=== PATIENT | male | born 1945 | race Caucasian/White ===

== ENCOUNTER 2020-10-03 17:59 | Emergency (ER) | payer OTHER ==
[~2020-10-03] VITALS: Ht 175.3 cm; Wt 65.8 kg
--- NOTE | 2020-10-03 18:04 | NUR ---
CODE STROKE ACTIVATED BY DR. QUIGLEY.
--- NOTE | 2020-10-03 18:06 | NUR ---
TELEMED REQUEST PLACED VIA PC, ID [id number].
--- NOTE | 2020-10-03 18:12 | NUR ---
PT TO CT VIA [facility] WITH ACLS GUIDELINES IN PLACE.
[2020-10-03] MEDS ORDERED: IV NORMAL SALINE 250 ML IV ONE (18:16)
[2020-10-03] MEDS ORDERED: SWABABLE VALVE TRANSFER SET EA MC ONE (18:16)
[2020-10-03] MEDS ORDERED: IOHEXOL 350 100 ML INFUS..BTL ONE (18:16)
[2020-10-03 18:17] LABS: BASOPHILS # (AUTO) 0.1 K/uL (0.0-8.0); BASOPHILS % (AUTO) 0.7 % (0.0-2.0); EOSINOPHILS # (AUTO) 0.1 K/uL (0.0-0.7); EOSINOPHILS % (AUTO) 1.9 % (0.0-7.0); HEMATOCRIT 46.6 % (36.7-47.1); HEMOGLOBIN 15.4 g/dL (12.5-16.3); LYMPHOCYTES # (AUTO) 1.4 K/uL (20.0-40.0); LYMPHOCYTES % (AUTO) 17.7 % (20.5-51.5); MEAN CORPUSCULAR HEMOGLOBIN 30.5 uug (23.8-33.4); MEAN CORPUSCULAR HGB CONC 33 g/dL (32.5-36.3); MEAN CORPUSCULAR VOLUME 92.3 fL (73.0-96.2); MONOCYTES # (AUTO) 0.8 K/uL (2.0-10.0); MONOCYTES % (AUTO) 10.4 % (0.0-11.0); NEUTROPHILS # (AUTO) 5.5 K/uL (1.8-8.9); NEUTROPHILS % (AUTO) 69.3 % (38.5-71.5); PLATELET COUNT (AUTO) 184 K/uL (152-348); RED BLOOD CELL COUNT(AUTO) 5.05 MIL/uL (4.06-5.63); WHITE BLOOD COUNT (AUTO) 7.9 K/uL (3.6-10.2)
[2020-10-03 18:25] LABS: CREATININE 1.3 mg/dL (0.6-1.3)
[2020-10-03] MEDS ORDERED: LUBI24CA5 PO (18:28)
[2020-10-03] MEDS ORDERED: HYDR-3980 PO (18:28)
[2020-10-03] MEDS ORDERED: ALEN70TA80 PO (18:28)
[2020-10-03] MEDS ORDERED: ISOS30TA86 PO (18:28)
[2020-10-03] MEDS ORDERED: METH5TAB3 PO (18:28)
[2020-10-03 18:31] LABS: BILIRUBIN,DIRECT 0.1 mg/dL (0.0-0.2); BILIRUBIN,TOTAL 0.3 mg/dL (0.2-1.0); TOTAL PROTEIN, SERUM 6.8 g/dL (6.4-8.2)
[2020-10-03 18:43] LABS: MAGNESIUM 2.2 mg/dL (1.8-2.4)
[2020-10-03 18:44] LABS: THYROID STIMULATING HORMONE 1.118 mIU/mL (0.358-3.740)
--- NOTE | 2020-10-03 19:01 | NUR ---
Report was given to alex Gregorio.
--- NOTE | 2020-10-03 19:30 | NUR ---
Patient refused PCR NOVEL CORONAVIRUS TEST.
--- NOTE | 2020-10-03 19:48 | NUR ---
KNOWLEDGE MANAGEMENT ADVISORHALLE REDDY CALLED TO NOTIFY COVID RAPID NEGATIVE
--- NOTE | 2020-10-03 19:58 | NUR ---
[facility] CALLED TO NOTIFY THAT THEY WILL SPEAK TO THE PHYSICAN SHORTLY
--- NOTE | 2020-10-03 20:00 | NUR ---
Patient is resting in bed, appears not be in any distress at this time.
--- NOTE | 2020-10-03 20:09 | NUR ---
NOTIFIED per MD [facility] SENDING AMBULANCE TO [facility] [facility] PATIENT.
[2020-10-03] MEDS ORDERED: ASPIRIN 325 MG TABLET PO ONE (20:15)
--- NOTE | 2020-10-03 20:26 | NUR ---
[facility] [place] [facility]. Call for report number is . Accept MD is DR Constantino. ETA of [facility] ambulance pick is [phone].
--- NOTE | 2020-10-03 20:30 | NUR ---
REPORT GIVEN TO NADEEM ZAPIEN AT [facility]
[2020-10-03] MEDS ORDERED: ASPIRIN 325 MG TABLET ONE (20:33)
--- NOTE | 2020-10-03 22:00 | NUR ---
Patient Tranfers to outside Facility via [facility] ambulance. Physician: BRIGITTE Location: [facility]
== END 2020-10-03 22:00 | disposition short-term general hospital (02) ==
LOC: ER 17:59
DX: R20.0 Anesthesia of skin (principal); R53.1 Weakness; Z20.822 Contact with and (suspected) exposure to COVID-19; I25.10 Atherosclerotic heart disease of native coronary artery without angina pectoris; Z95.1 Presence of aortocoronary bypass graft; Z87.820 Personal history of traumatic brain injury; R94.31 Abnormal electrocardiogram [ECG] [EKG]; I25.2 Old myocardial infarction; Z88.8 Allergy status to other drugs, medicaments and biological substances; Z79.899 Other long term (current) drug therapy
CPT/HCPCS: 36415; 70450; 70496; 70498; 71045; 80048; 80061; 80076; 82550; 83735; 83880; 84443; 84484; 85025; 85730; 87426; 93005; 99291; Q9967; 70030-TC; A4663; J7050